=== PATIENT | male | born 1960 | race Caucasian/White ===

== ENCOUNTER 2019-01-07 10:37 | Inpatient (IN) | payer OTHER ==
[2019-01-07] MEDS ORDERED: NORMAL SALINE 1000 ML 2,000 ML IV ONE (10:53)
[2019-01-07] MEDS ORDERED: INSULIN REG, HUMAN 100 UNIT/ML 3 ML VIAL (PYX) SUBCUT ONE (10:55)
[2019-01-07 11:02] LABS: INTERNATIONAL RATION (INR) 1.29; PROTHROMBIN TIME 16.1 SEC (11.4-15.4)
[2019-01-07 11:05] LABS: HEMATOCRIT 37.8 % (37.9-51.0); HEMOGLOBIN 12.9 g/dL (13.5-17.0); MEAN CORPUSCULAR HEMOGLOBIN 30.1 pg (27.0-33.4); MEAN CORPUSCULAR HGB CONC 34.1 g/dL (32.0-36.0); MEAN CORPUSCULAR VOLUME 88 fl (80-97); PLATELET COUNT 357 10^3/uL (150-450); RED BLOOD COUNT 4.27 10^6/uL (4.35-5.55); RED CELL DISTRIBUTION WIDTH 14.7 % (11.5-14.0); WHITE BLOOD COUNT 10.6 10^3/uL (4.0-10.5)
--- NOTE | 2019-01-07 11:09 | ER Document Report ---
ED General - General Stated Complaint: WEAKNESS Time Seen by Provider: 01/07/19 10:42 Notes: 58-year-old male presents to the ER complaining of increasing weakness polyuria polydipsia over the last several months. Patient saw his doctor back in [place]. They are vacationing in [place] this week. The son is a educational technology specialist and reviewed the patient's labs online and the patient had a blood sugar 341 a week ago. The doctor never addressed this. Today the patient's blood sugar was 509 via EMS he has no history of diabetes. The patient denies chest pain or shortness of breath he complains of just extreme fatigue and weakness. Complains of polyuria polydipsia. The patient denies fever or chills. He is nauseous but denies vomiting. Denies abdominal pain. - Related Data Allergies/Adverse Reactions: No Known Allergies Allergy (Unverified 01/07/19 11:15) Past Medical History - Social History Smoking Status: Never Smoker Family History: Reviewed & Not Pertinent Review of Systems - Review of Systems Constitutional: Malaise, Weakness. denies: Chills, Fever Cardiovascular: denies: Chest pain Respiratory: denies: Short of breath Gastrointestinal: Nausea. denies: Diarrhea, Vomiting Genitourinary: Frequency. denies: Dysuria, Flank pain, Hematuria Neurological/Psychological: denies: Headaches -: Yes All other systems reviewed and negative Physical Exam - Vital signs Vitals: Resp Pulse Ox 25 H 95 01/07/19 10:47 01/07/19 10:47 - Notes Notes: GENERAL_APPEARANCE: well_nourished, alert, cooperative, no_acute_distress, no_obvious_discomfort. VITALS: reviewed, see vital signs table. HEAD: no_swelling\tenderness on the head. EYES: PERRL, EOMI, conjunctiva_clear. NOSE: no_nasal_discharge. MOUTH: Mouth and tongue THROAT: no_tonsilar_inflammation, no_airway_obstruction. no_lymphadenopathy NECK: supple, no_neck_tenderness, (-)thyromegaly. BACK: no_back_tenderness. CHEST_WALL: no_chest_tenderness. LUNGS: no_wheezing, no_rales, no_rhonchi, (-)accessory muscle use, good air exchange bilateral. HEART: normal_rate, normal_rhythm, normal_S1, normal_S2, (-)S3, (-)S4, no_mu rmur, no_rub. ABDOMEN: normal_BS, soft, no_abd_tenderness, (-)guarding, (-)rebound, no_organomegaly, no_abd_masses. EXTREMITIES: good pulses in all_extremities, no_swelling\tenderness in the extremities, no_edema. SKIN: warm, dry, good_color, no_rash. MENTAL_STATUS: speech_clear, oriented_X_3, normal_affect, responds_appropriately to questions. NEURO: Neg Motor or Sensory Deficits on exam, CN 2-12 intact, DTR 2+ symmetric x 4, No cerbellar signs Course - Re-evaluation Re-evalutation: 01/07/19 11:08 58-year-old male presents with new onset diabetes. Concern the patient may be in diabetic ketoacidosis. Will draw labs to look for anion gap and ketones. We will give the patient IV fluids small dose of insulin since he is insulin joel. We will look for any underlying causes. Patient is tachycardic here. He looks considerably dehydrated we will give him a couple liters of IV fluids.. 01/07/19 15:04 Patient new onset diabetic he remains tachycardic occasional diaphoresis EKG shows a sinus tach with no ST elevation. There is a mildly bumped troponin but this may be due to dehydration and due to the tachycardia little demand ischemia. He is having no chest pain or shortness of breath. He was feeling n umbness and tingling all over a CT the brain was ordered but my suspicion is low and it was normal. Gave the patient some subcu insulin and will keep given him IV fluids. The patient will be admitted to the hospital for new onset diabetes profound dehydration hyperosmolar state hyponatremia. - Vital Signs Vital signs: Temp Pulse Resp BP Pulse Ox 32 H 138/95 H 93 01/07/19 13:01 01/07/19 13:01 01/07/19 13:01 - Laboratory Result Diagrams: 01/07/19 09:57 01/07/19 09:57 Laboratory results interpreted by me: 01/07/19 01/07/19 01/07/19 09:57 09:57 09:57 WBC 10.6 H RBC 4.27 L Hgb 12.9 L Hct 37.8 L RDW 14.7 H Band Neutrophils % 27 H Lymphocytes % (Manual) 3 L Metamyelocytes % 2 H Myelocytes % 1 H Abs Neuts (Manual) 9.5 H Abs Lymphs (Manual) 0.3 L PT 16.1 H Sodium 128.7 L Chloride 92 L BUN 33 H Creatinine 1.28 H Est GFR (MDRD) Non-Af 57 L Glucose 516 H* POC Glucose Hemoglobin A1c % Lactic Acid Total Bilirubin 1.5 H Direct Bilirubin 1.0 H Alkaline Phosphatase 205 H Albumin 3.3 L Urine Protein Urine Glucose (UA) Urine Blood Urine Urobilinogen 01/07/19 01/07/19 01/07/19 10:50 10:57 10:59 WBC RBC Hgb Hct RDW Band Neutrophils % Lymphocytes % (Manual) Metamyelocytes % Myelocytes % Abs Neuts (Manual) Abs Lymphs (Manual) PT Sodium Chloride BUN Creatinine Est GFR (MDRD) Non-Af Glucose POC Glucose 521 H* Hemoglobin A1c % 9.8 H Lactic Acid 2.4 H Total Bilirubin Direct Bilirubin Alkaline Phosphatase Albumin Urine Protein Urine Glucose (UA) Urine Blood Urine Urobilinogen 01/07/19 01/07/19 01/07/19 12:28 12:40 14:09 WBC RBC Hgb Hct RDW Band Neutrophils % Lymphocytes % (Manual) Metamyelocytes % Myelocytes % Abs Neuts (Manual) Abs Lymphs (Manual) PT Sodium Chloride BUN Creatinine Est GFR (MDRD) Non-Af Glucose POC Glucose 482 H* 491 H* Hemoglobin A1c % Lactic Acid Total Bilirubin Direct Bilirubin Alkaline Phosphatase Albumin Urine Protein 30 H Urine Glucose (UA) >=500 H Urine Blood SMALL H Urine Urobilinogen 4.0 H - Diagnostic Test Radiology reviewed: Reports reviewed Radiology results interpreted by me: 01/07/19 15:[address] 01/07/19 14:11 IMPRESSION: NORMAL BRAIN CT WITHOUT CONTRAST. EVIDENCE OF ACUTE STROKE: NO. Chest X-Ray 01/07/19 14:41 IMPRESSION: Possible small left pleural effusion versus pleural thickening. No other significant findings. Critical Care Note - Critical Care Note Total time excluding time spent on procedures (mins): 31 Discharge - Discharge Clinical Impression: Diabetes, Hyperglycemia, Hyponatremia, Hyperosmolar hyponatremia, Tachycardia Condition: Fair Disposition: ADMITTED OBSERVATION Admitting Provider: Royal (Hospitalist) Unit Admitted: Telemetry
[2019-01-07 11:18] LABS: ALBUMIN 3.3 g/dL (3.5-5.0); ALKALINE PHOSPHATASE 205 U/L (38-126); ANION GAP 14 (5-19); ASPARTATE AMINO TRANSFERASE 51 U/L (17-59); BILIRUBIN,TOTAL 1.5 mg/dL (0.2-1.3); BLOOD UREA NITROGEN 33 mg/dL (7-20); CALCIUM 9.4 mg/dL (8.4-10.2); CARBON DIOXIDE 23 mmol/L (22-30); CHLORIDE 92 mmol/L (98-107); POTASSIUM 4.5 mmol/L (3.6-5.0); TOTAL PROTEIN 7.4 g/dL (6.3-8.2)
[2019-01-07 11:35] LABS: ABSOLUTE LYMPHOCYTES# (MANUAL) 0.3 10^3/uL (0.5-4.7); ABSOLUTE MONOCYTES # (MANUAL) 0.7 10^3/uL (0.1-1.4); BASOPHILS % (MANUAL) 0 % (0-2); EOSINOPHILS % (MANUAL) 0 % (0-6); LYMPHOCYTES % (MANUAL) 3 % (13-45); METAMYELOCYTES % (MANUAL) 2 % (0); MONOCYTES % (MANUAL) 7 % (3-13); MYELOCYTES % (MANUAL) 1 % (0); SEGMENTED NEUTROPHILS % (MAN) 60 % (42-78); TOTAL CELLS COUNTED 100
[2019-01-07 11:36] LABS: PLATELET COMMENT ADEQUATE; RBC MORPHOLOGY COMMENT NORMO-CYTIC/CHROMIC
[2019-01-07 11:39] LABS: BAND NEUTROPHILS % (MANUAL) 27 % (3-5); GLUCOSE 516 mg/dL (75-110)
[2019-01-07 11:44] LABS: VENOUS BLOOD BASE EXCESS -4.7 mmol/L; VENOUS BLOOD HCO3 20.5 mmol/L (20-32); VENOUS BLOOD PCO2 38.5 mmHg (35-63); VENOUS BLOOD PH 7.35 (7.30-7.42)
[2019-01-07 12:50] LABS: AMORPHOUS SEDIMENT,URINE TRACE /HPF; APPEARANCE,URINE CLOUDY; BILIRUBIN,URINE NEGATIVE (NEGATIVE); COLOR,URINE AMBER; GLUCOSE, URINE >=500 mg/dL (NEGATIVE); KETONES,URINE NEGATIVE (NEGATIVE); LEUKOCYTE ESTERASE,URINE NEGATIVE (NEGATIVE); NITRITE,URINE NEGATIVE (NEGATIVE); PROTEIN,URINE 30 mg/dL (NEGATIVE); URINE SPECIFIC GRAVITY 1.024
[2019-01-07] MEDS ORDERED: NORMAL SALINE 1000 ML 1,000 ML IV PRN ×3 (14:11→16:31)
--- NOTE | 2019-01-07 14:31 | EKG REPORT ---
SEVERITY:- ABNORMAL ECG - SINUS TACHYCARDIA PROBABLE LEFT VENTRICULAR HYPERTROPHY BORDERLINE T ABNORMALITIES, INFERIOR LEADS ST ELEVATION, CONSIDER LATERAL INJURY, CLIINICAL CORRELATION NEEDED, NO OLD EKG TO COMPARE. BORDERLINE PROLONGED QT INTERVAL : Confirmed by: Angel Rojo MD 07-Jan-2019 14:30:24
--- NOTE | 2019-01-07 15:00 | RADIOLOGY REPORT (SQ) ---
EXAM DESCRIPTION: CT HEAD WITHOUT COMPLETED DATE/TIME: 01/07/2019 2:50 pm REASON FOR STUDY: AMS COMPARISON: None. TECHNIQUE: Axial images acquired through the brain without intravenous contrast. Images reviewed wi th bone, brain and subdural windows. Images stored on PACS. All CT scanners at this facility use dose modulation, iterative reconstruction, and/or weight based d osing when appropriate to reduce radiation dose to as low as reasonably achievable (ALARA). [facility]: Dose Right [facility]: CareDose [facility]: Dose Right [facility]: Teradose 4D [facility]: Cojoin RADIATION DOSE: CT Rad equipment meets quality standard of care and radiation dose reduction techniq ues were employed. CTDIvol: 53.2 mGy. DLP: 1044 mGy-cm. mGy. LIMITATIONS: None. FINDINGS: VENTRICLES: Normal size and contour. CEREBRUM: No masses. No hemorrhage. No midline shift. No evidence for acute infarction. Normal gra y/white matter differentiation. No areas of low density in the white matter. CEREBELLUM: No masses. No hemorrhage. No alteration of density. No evidence for acute infarction. EXTRAAXIAL SPACES: No fluid collections. No masses. ORBITS AND GLOBE: No intra- or extraconal masses. Normal contour of globe without masses. CALVARIUM: No fracture. PARANASAL SINUSES: Small retention cyst or polyp in the left maxillary sinus. Slight mucosal thicken ing in the left maxillary sinus. SOFT TISSUES: No mass or hematoma. OTHER: No other significant finding. IMPRESSION: NORMAL BRAIN CT WITHOUT CONTRAST. EVIDENCE OF ACUTE STROKE: NO. COMMENT: Quality ID # [id number]: Final reports with documentation of one or more dose reduction techniques (e.g., Automated exposure control, adjustment of the mA and/or kV according to patient size, use of iterative reconstruction technique) TECHNICAL DOCUMENTATION: JOB ID: [id number] [employer]- All Rights Reserved Reading location - IP/workstation name: [email or web address]
--- NOTE | 2019-01-07 15:01 | RADIOLOGY REPORT (SQ) ---
EXAM DESCRIPTION: CHEST SINGLE VIEW COMPLETED DATE/TIME: 01/07/2019 2:53 pm REASON FOR STUDY: high heart rate COMPARISON: None. NUMBER OF VIEWS: One view. TECHNIQUE: Single frontal radiographic view of the chest acquired. LIMITATIONS: None. FINDINGS: LUNGS AND PLEURA: Minimal blunting of left costophrenic angle. Small left effusion cannot be excluded. No consolidation. No pneumothorax. MEDIASTINUM AND HILAR STRUCTURES: No masses. Contour normal. HEART AND VASCULAR STRUCTURES: Heart normal in size. Normal vasculature. BONES: No acute findings. HARDWARE: None in the chest. OTHER: No other significant finding. IMPRESSION: Possible small left pleural effusion versus pleural thickening. No other significant fi ndings. TECHNICAL DOCUMENTATION: JOB ID: [id number] [employer]- All Rights Reserved Reading location - IP/workstation name: [email or web address]
[2019-01-07] MEDS ORDERED: TEMAZEPAM 15 MG CAPSULE PO PRN (16:31)
[2019-01-07] MEDS ORDERED: MAG HYDROX/AL HYDROX/SIMETH SUSP 30 ML UDCUP PO PRN (16:31)
[2019-01-07] MEDS ORDERED: ACETAMINOPHEN 325 MG TABLET PO PRN (16:31)
[2019-01-07] MEDS ORDERED: ONDANSETRON 4 MG TAB.RAPDIS PO PRN (16:31)
[2019-01-07] MEDS ORDERED: MAGNESIUM HYDROXIDE SUSP 30 ML UDCUP PO PRN (16:31)
[2019-01-07] MEDS ORDERED: ALBUTEROL SULFATE 0.083% NEB 2.5 MG/3 ML AMPUL NEB PRN (16:31)
--- NOTE | 2019-01-07 16:31 | PDOC H&P ---
History of Present Illness Admission Date/PCP: 01/07/19 15:19 Patient complains of: Feeling Poorly, weak and no appetite History of Present Illness: ANDREW CARRASCO is a 58 year old male with a past medical history of hypertension, gout and arthritis. Approximately 2 weeks ago he was feeling poorly. He thought he had strained a groin muscle on the left. He went to his primary care doctor. They did x-rays, ultrasound and blood work. He is on vacation at this time and began to feel poorly. He was having weakness, decreased appetite and intermittent confusion. Upon examination the emergency department he was found to have a glucose greater than 500. His son did access his lab work from the office visit 2 weeks ago and his glucose was 301 at that t alexys. He is diaphoretic and somewhat tachypneic. He denies chest pain. He still feels very weak. Despite 4 L of fluid his lactic acid is still 2.4 and he did receive 10 units of regular insulin and his sugar remains over 400. Past Medical History Cardiac Medical History: Reports: Hyperlipidema, Hypertension Pulmonary Medical History: Reports: None EENT Medical History: Reports: None Neurological Medical History: Reports: None Endocrine Medical History: Reports: None Renal/ Medical History: Denies: Chronic Kidney Disease, End Stage Renal Disease Malignancy Medical History: Reports: None GI Medical History: Reports: None Musculoskeltal Medical History: Reports: Arthritis, Gout Skin Medical History: Denies: Eczema, Psoriasis Psychiatric Medical History: Reports: Tobacco Dependency, Other - Previously drank 2 cases of beer per week and does use chewing tobacco Denies: Substance Abuse Traumatic Medical History: Reports: None Hematology: Reports: None Infectious Medical History: Reports: None Past Surgical History Past Surgical History: Reports: Orthopedic Surgery - Arthroscopy right knee, previous back surgery Social History Information Source: Patient - And spouse Lives with: Spouse/Significant other Smoking Status: Never Smoker Frequency of Alcohol Use: Social - History of 2 cases of beer per week Hx Recreational Drug Use: No Hx Prescription Drug Abuse: No - Advance Directive Resuscitation Status: Full Code Surrogate healthcare decision maker:: His Family History Family History: CAD Parental Family History Reviewed: Yes Children Family History Reviewed: Yes Sibling(s) Family History Reviewed.: Yes Medication/Allergy Home Medications: Allopurinol [Zyloprim 300 mg Tablet] 300 mg PO DAILY 01/07/19 Cyclobenzaprine HCl [Flexeril 10 mg Tablet] 10 mg PO BIDP PRN 01/07/19 Diclofenac Sodium [Voltaren] 75 mg PO Q12 01/07/19 Diclofenac Sodium [Voltaren] 200 gm TP QID 01/07/19 Indomethacin [Indocin 25 Mg Capsule] 25 mg PO DAILY 01/07/19 Losartan Potassium [Cozaar 100 mg Tablet] 100 mg PO DAILY 01/07/19 Probenecid/Colchicine [Probenecid-Colchicine Tablet] 1 each PO DAILY 01/07/19 Allergies/Adverse Reactions: No Known Allergies Allergy (Unverified 01/07/19 11:15) Review of Systems Constitutional: PRESENT: as per HPI, anorexia, fatigue. ABSENT: fever(s), weight loss Eyes: ABSENT: visual disturbances Ears: ABSENT: hearing changes Nose, Mouth, and Throat: ABSENT: headache(s), mouth pain, sore throat Cardiovascular: ABSENT: chest pain, edema, palpitations Respiratory: PRESENT: dyspnea - Occasional. ABSENT: cough, hemoptysis, sputum Gastrointestinal: ABSENT: abdominal pain, coffee ground emesis, diarrhea, heartburn, nausea, vomiting Genitourinary: ABSENT: difficulty urinating, dysuria Musculoskeletal: PRESENT: back pain. ABSENT: deformity, joint swelling Integumentary: PRESENT: diaphoresis Neurological: ABSENT: abnormal gait, abnormal movements, abnormal speech, confusion - reports occasional poor concentration, memory loss Psychiatric: ABSENT: anxiety, depression, hallucinations Endocrine: PRESENT: polyuria. ABSENT: cold intolerance, heat intolerance Hematologic/Lymphatic: ABSENT: easy bleeding, easy bruising, lymphadenopathy Allergic/Immunologic: ABSENT: seasonal rhinorrhea Physical Exam Vital Signs: Temp Pulse Resp BP Pulse Ox 32 H 138/95 H 93 01/07/19 13:01 01/07/19 13:01 01/07/19 13:01 Intake & Output 01/06/19 01/07/19 01/08/19 06:59 06:59 06:59 Intake Total 3000 Balance 3000 Weight 95.708 kg General appearance: PRESENT: cooperative, mild distress - Mild to moderate distress, well-nourished Head exam: PRESENT: atraumatic, normocephalic Eye exam: PRESENT: conjunctiva pale, EOMI. ABSENT: conjunctival injection, scleral icterus Ear exam: PRESENT: normal external ear exam. ABSENT: bleeding, drainage Mouth exam: PRESENT: dry mucosa, neck supple, tongue midline Respiratory exam: PRESENT: clear to auscultation lópez, symmetrical, unlabored. ABSENT: rales, rhonchi, tachypnea, wheezes Cardiovascular exam: PRESENT: RRR, +S1, +S2 GI/Abdominal exam: PRESENT: normal bowel sounds, soft. ABSENT: distended, guarding, tenderness Rectal exam: PRESENT: deferred Gentrourinary exam: ABSENT: indwelling catheter Extremities exam: ABSENT: joint swelling, pedal edema Musculoskeletal exam: PRESENT: ambulatory, normal inspection Neurological exam: PRESENT: alert, awake, oriented to person, oriented to place, oriented to time, oriented to situation, CN II-XII grossly intact Psychiatric exam: PRESENT: anxious, flat affect. ABSENT: agitated Focused psych exam: ABSENT: delusional, restlessness Skin exam: PRESENT: pallor, warm, other - Diaphoretic Results Laboratory Results: 01/07/19 09:57 01/07/19 09:57 01/07/19 01/07/19 01/07/19 09:57 09:57 10:50 WBC 10.6 H RBC 4.27 L Hgb 12.9 L Hct 37.8 L MCV 88 MCH 30.1 MCHC 34.1 RDW 14.7 H Plt Count 357 Seg Neutrophils % Not Reportable VBG pH VBG pCO2 VBG HCO3 VBG Base Excess Sodium 128.7 L Potassium 4.5 Chloride 92 L Carbon Dioxide 23 Anion Gap 14 BUN 33 H Creatinine 1.28 H Est GFR ( Amer) > 60 Glucose 516 H* Lactic Acid 2.4 H Calcium 9.4 Total Bilirubin 1.5 H AST 51 Alkaline Phosphatase 205 H Total Protein 7.4 Albumin 3.3 L Urine Color Urine Appearance Urine pH Ur Specific [place] Urine Protein Urine Glucose (UA) Urine Ketones Urine Blood Urine Nitrite Ur Leukocyte Esterase Urine WBC (Auto) Urine RBC (Auto) 01/07/19 01/07/19 01/07/19 11:32 12:28 15:15 WBC RBC Hgb Hct MCV MCH MCHC RDW Plt Count Seg Neutrophils % VBG pH 7.35 VBG pCO2 38.5 VBG HCO3 20.5 VBG Base Excess -4.7 Sodium Potassium Chloride Carbon Dioxide Anion Gap BUN Creatinine Est GFR ( Amer) Glucose Lactic Acid 2.4 H Calcium Total Bilirubin AST Alkaline Phosphatase Total Protein Albumin Urine Color RANJIT Urine Appearance CLOUDY Urine pH 5.0 Ur Specific [place] 1.024 Urine Protein 30 H Urine Glucose (UA) >=500 H Urine Ketones NEGATIVE Urine Blood SMALL H Urine Nitrite NEGATIVE Ur Leukocyte Esterase NEGATIVE Urine WBC (Auto) 7 Urine RBC (Auto) 6 01/07/19 01/07/19 01/07/19 10:59 10:59 14:30 Creatine Kinase 69 Troponin I 0.126 0.104 Impressions: Head CT 01/07/19 14:11 IMPRESSION: NORMAL BRAIN CT WITHOUT CONTRAST. EVIDENCE OF ACUTE STROKE: NO. Chest X-Ray 01/07/19 14:41 IMPRESSION: Possible small left pleural effusion versus pleural thickening. No other significant findings. Assessment and Plan - Diagnosis (1) Diabetes mellitus type 2 in nonobese Is this a current diagnosis for this admission?: Yes Plan: 01/07/2019-the patient's glucose was over 500 on admission. He did have a glucose of 300 several weeks ago but was unaware as he did not receive a call from his primary care provider. He also has a strain in the left groin that was ruled out for DVT. He has received 10 units of regular insulin IV. He will be on a sliding scale. I have also started metformin and glipizide. We will check his fingerstick later tonight. We should be able to decrease his IV fluids. We will recheck electrolytes and lactic acid tonight. (2) Hyperosmolar hyponatremia Is this a current diagnosis for this admission?: Yes Plan: 01/07/2019-his serum sodium is 128. This corrects to normal when considering his elevated glucose. He is receiving normal saline. We will continue to monitor his electrolytes. (3) Tachycardia Is this a current diagnosis for this admission?: Yes Plan: 01/07/2019-with IV fluids his tachycardia should resolve. His initial troponin was elevated but likely due to the acute kidney injury and tachycardia. I will order 2 additional troponin levels and creatinine kinase levels. (4) Hypertension Qualifiers: Hypertension type: essential hypertension Qualified Code(s): I10 - Essential (primary) hypertension Is this a current diagnosis for this admission?: Yes Plan: 01/07/2019-the patient reports that he takes losartan 50 mg at home. The medication reconciliation dose is listed as 100. I ordered the 50 mg of losartan with a hold for systolic blood pressure less than 100. (5) Acute kidney injury Is this a current diagnosis for this admission?: Yes Plan: 01/07/2019-BUN is 33 with an elevated creatinine of 1.38. With all of the IV fluids this should correct. We will continue to monitor his renal function. Of note, the nurse reports tea colored urine. Considering the left leg pain that he was having we will check creatinine kinase to rule out rhabdo. (6) Tachypnea Is this a current diagnosis for this admission?: Yes Plan: 01/07/2019-the nurse did call me to report that the patient is having tachypnea. On chest x-ray he had a small left pleural effusion. I did give a one-time dose of IV Lasix. After this bolus of fluid he will be on continuous infusion and we will adjust the rate based on his laboratory studies and clinical status. - Time Time Spent with patient: 35 or more minutes Medications reviewed and adjusted accordingly: Yes Anticipated discharge: Home Within: within 72 hours - Inpatient Certification Based on my medical assessment, after consideration of the patient's comorbidities, presenting symptoms, or acuity I expect that the services needed warrant INPATIENT care.: Yes I certify that my determination is in accordance with my understanding of Medicare's requirements for reasonable and necessary INPATIENT services [42 CFR 412.3e].: Yes Medical Necessity: Need Close Monitoring Due to Risk of Patient Decompensation, Need For IV Fluids
[2019-01-07] MEDS ORDERED: DEXTROSE 50%-WATER 25 GM/50 ML DISP.SYRIN IV PRN ×2 (16:38)
[2019-01-07] MEDS ORDERED: GLUCAGON,HUMAN RECOMB 1 MG INJ IM PRN (16:38)
[2019-01-07] MEDS ORDERED: DEXTROSE 40% GEL 15 GM TUBE PO PRN ×2 (16:38)
[2019-01-07] MEDS ORDERED: FUROSEMIDE INJ/PF 20 MG/2 ML SDV IV ONE (17:30)
[2019-01-07] MEDS ORDERED: INSULIN LISPRO 100 UNIT/ML 3 ML VIAL SUBCUT ONE (18:15)
--- NOTE | 2019-01-07 18:43 | EKG REPORT ---
SEVERITY:- ABNORMAL ECG - SINUS TACHYCARDIA ST ELEVATION, PROBABLE LATERAL INJURY PROBABLE POSTERIOR INFARCT MINIMAL ST ELEVATION, INFERIOR LEADS BORDERLINE PROLONGED QT INTERVAL : Confirmed by: Angel Rojo MD 07-Jan-2019 18:42:01
[2019-01-07 20:55] LABS: ANION GAP 13 (5-19); BLOOD UREA NITROGEN 33 mg/dL (7-20); CALCIUM 8.4 mg/dL (8.4-10.2); CARBON DIOXIDE 19 mmol/L (22-30); CHLORIDE 101 mmol/L (98-107); GLUCOSE 374 mg/dL (75-110); POTASSIUM 4.6 mmol/L (3.6-5.0)
[2019-01-07] MEDS ORDERED: INSULIN LISPRO 100 UNIT/ML 3 ML VIAL SUBCUT SCH (22:00)
[2019-01-07] MEDS ORDERED: FAMOTIDINE 20 MG TABLET PO SCH (22:00)
[2019-01-07] MEDS ORDERED: METOPROLOL TARTRATE PF/INJ 5 MG/5 ML SDV IV ONE ×2 (22:18→22:30)
[2019-01-07] MEDS ORDERED: METOPROLOL TARTRATE PF/INJ 5 MG/5 ML SDV IV PRN (22:22)
--- NOTE | 2019-01-07 22:39 | Progress Note ---
Provider Note Provider Note: Critical Care: Start: 21:54 Problem: Tachycardia and tachypnea. Care note: I was asked to see the patient by the nursing staff who was concerned that the patient had persistent tachycardia and tachypnea with a respiratory rate in the low 30s to low 40s and a heart rate in the 120s to 140s since admission. Patient became severely dyspneic with minimal activity (getting up to urinate). He responded well to returning to bed and resting with supplemental oxygen at 3 L/min per nasal cannula. His heart rate and respiratory rate however were unchanged despite returning to bed. Patient indicated that his shortness of breath with rapid breathing and a fast pulse have been present, off and on, for 2 or 3 days prior to coming into the hospital. Physical exam showed significant tachycardia and tachypnea on auscultation chest. Lung tavera were noted to be clear. Extremities showed no evidence of clubbing cyanosis or edema. Abdomen is soft with bowel sounds being positive. Neurologically the patient was alert and oriented x3 with grossly normal motor and sensory function. Patient was treated with metoprolol 5 mg IV X 1 dose with a good response and a subsequent dose of oral metoprolol succinate 50 mg x 1 was ordered with orders to start Toprol-XL 100 mg p.o. daily at 10 AM 01/08/2019. Patient's heart rate, respiratory rate and blood pressure responded well to the initial beta-richie therapy. Patient was additionally found to have some mental confusion and ABGs were obtained showing hypoxia with PO2 of 66 and a pH of 7.33 with a bicarbonate of 18. The patient was treated with a bicarb infusion to deliver 150 mEq over the next 6 hours. A continuous insulin infusion was ordered and the routine insulin infusion protocol was advised. Additionally patient was noted to have a positive blood culture (anaerobic bottle) with gram-positive cocci. He was subsequent started on Zosyn 3.375 g IV every 6 hours. Serum lactic acids every 4 hours were obtained. Patient will also be sedated and/or restrained as needed for his protection. A Saunders catheter will be inserted for the patient's comfort and strict monitoring of the patient's urinary output. Stop: 23:32 01/07/2019 Total critical care time: 24 minutes
[2019-01-07 22:53] LABS: ARTERIAL BLOOD BASE EXCESS -6.5 mmol/L; ARTERIAL BLOOD HCO3 18.8 mmol/L (20-24); ARTERIAL BLOOD PCO2 36.7 mmHg (35-45); ARTERIAL BLOOD PH 7.33 (7.35-7.45); ARTERIAL BLOOD PO2 66.6 mmHg (80-100); ARTERIAL BLOOD TOTAL CO2 19.9 mmol/L (23-27)
[2019-01-07 22:54] LABS: ARTERIAL BLOOD FIO2 4 L
[2019-01-07] MEDS ORDERED: METOPROLOL TARTRATE 50 MG TABLET PO ONE (23:00)
[2019-01-07] MEDS ORDERED: SODIUM BICARBONATE 8.4% INJ 50 MEQ/50 ML DISP.SYRIN ONE ×2 (23:09→23:12)
[2019-01-07] MEDS ORDERED: DEXTROSE 5%-WATER 1000 ML 1,000 ML with SODIUM BICARBONATE 150 MEQ IV PRN ×2 (23:24)
[2019-01-07] MEDS ORDERED: INSULIN REG, HUMAN 100 UNIT/ML 3 ML VIAL (PYX) SUBCUT PRN (23:33)
[2019-01-07] MEDS ORDERED: SODIUM BICARBONATE IV PRN ×2 (23:36)
[2019-01-07] MEDS ORDERED: WATER IV PRN ×2 (23:36)
[2019-01-07] MEDS ORDERED: DEXTROSE 5% IV PRN ×2 (23:36)
[2019-01-08] MEDS ORDERED: PIPERACILLIN SODIUM/TAZOBACTAM 3.375 GM in NORMAL SALINE 100 ML IV SCH ×2
[2019-01-08] MEDS ORDERED: PIPERACILLIN/TAZOBACTAM 3.375 GM VIAL IV ONE (00:03)
[2019-01-08] MEDS ORDERED: PIPERACILLIN/TAZOBACTAM 3.375 GM VIAL IV PRN (00:05)
[2019-01-08] MEDS ORDERED: INSULIN REG, HUMAN 100 UNIT/ML 3 ML VIAL (PYX) ONE (00:06)
[2019-01-08] MEDS ORDERED: CHLORPROMAZINE HCL INJ 25 MG/1 ML AMPULE IV PRN ×2 (00:12→01:58)
[2019-01-08] MEDS ORDERED: METOPROLOL TARTRATE PF/INJ 5 MG/5 ML SDV IV ONE (00:23)
[2019-01-08] MEDS ORDERED: CHLORPROMAZINE HCL INJ 25 MG/1 ML AMPULE ONE (00:55)
[2019-01-08] MEDS ORDERED: INSULIN, REGULAR 100 UNIT/100 ML NORMAL SALINE IV PRN ×2 (01:30)
[2019-01-08] MEDS ORDERED: DIAZEPAM INJ 10 MG/2 ML DISP.SYRIN IV PRN (01:56)
--- NOTE | 2019-01-08 01:56 | Progress Note ---
Provider Note Provider Note: Critical Care: Start: 00:56 01/08/2019 Critical care problem: Increasing confusion and agitation. Patient had become more agitated over time and less and less anchored in reality. Patient demonstrated disorientation in all 3 spheres as well as generalized tremulousness, agitation, confusion and probable visual hallucinations. He was given Thorazine 12.5 mg IV every 4 hours and did show some modest response to treatment. He was noted to have reverted back to an elevated heart rate in tachypnea with a heart rate in the 140s and respiratory rate in the mid 30s but his O2 saturation was maintained in the 95 to 98% range with supplemental oxygen. On exam the patient continued to show tachycardia and tachypnea to auscultation though his lungs remain clear. Laboratory evaluation showed a serum lactate of 4.2 and this combined with his positive anaerobic blood culture may point towards sepsis as the etiology of his confusion. The patient's denies excessive use of alcohol though she admits that he does drink several times weekly. As such patient is being moved to the ICU and he will be treated for sepsis with IV Zosyn and IV vancomycin. His diabetes will be treated with an insulin infusion while his bicarbonate infusion is continued. He will continue being treated with Thorazine at increased dose of 25 mg IV every 4 hours as needed agitation and he will also be started on Valium 5 mg IV every 4 hours scheduled with a 10 mg IV q. one hour dosage available for seizure activity or other severe delirium tremens symptoms. A CTA of the chest is being obtained on the way to the ICU and results are still pending at this time. Stop: 01:58 01/08/2019 Total critical care time: 31 minutes
[2019-01-08] MEDS ORDERED: INSULIN LISPRO 100 UNIT/ML 3 ML VIAL SUBCUT SCH (02:00)
[2019-01-08] MEDS ORDERED: DIAZEPAM 5 MG TABLET PO SCH (02:00)
[2019-01-08] MEDS ORDERED: EPINEPHRINE INJ 1 MG/10 ML DISP.SYRIN ONE (02:00)
[2019-01-08] MEDS ORDERED: VANCOMYCIN HCL INJ 1000 MG VIAL IV PRN (02:11)
[2019-01-08] MEDS ORDERED: VANCOMYCIN HCL INJ 1000 MG VIAL IV ONE (02:15)
[2019-01-08] MEDS ORDERED: VANCOMYCIN HCL 2,000 MG in DEXTROSE 5%-WATER 500 ML IV ONE (02:15)
--- NOTE | 2019-01-08 02:25 | RADIOLOGY REPORT (SQ) ---
EXAM DESCRIPTION: CT CHEST ANGIOGRAPHY WITHOUT THEN WITH IV CONTRAST COMPLETED DATE/TME: 01/08/2019 00:00 CLINICAL HISTORY: 58 years, Male, DYSPNEA, TACHYCARDIA. EVAL PE COMPARISON: None. TECHNIQUE: [id number] Images stored on PACS. All CT scanners at this facility use dose modulation, iterative reconstruction, and/or weight based dosing when appropriate to reduce radiation dose to as low as reasonably achievable (ALARA). Axial images with coronal and sagittal MIPS [facility]: Dose Right [facility]: CareDose [facility]: Dose Right [facility]: Teradose 4D [facility]: [employer] LIMITATIONS: None. FINDINGS: Contrast bolus is suboptimal. No large or central pulmonary embolus. Negative for thoracic aortic aneurysm or dissection. Cardiomegaly. Coronary artery calcification. Small to moderate-sized pericardial effusion. Limited evaluation of upper abdomen shows fatty infiltrative change to the liver. Small bilateral pleural effusions. Adjacent consolidative change. No pneumothorax IMPRESSION: Suboptimal contrast bolus however no large or central pulmonary embolus. Cardiomegaly. Small to moderate pericardial effusion. Small bibasilar pleural effusions with adjacent consolidation. TECHNICAL DOCUMENTATION: Quality ID # [id number]: Final reports with documentation of one or more dose reduction techniques (e.g., Automated exposure control, adjustment of the mA and/or kV according to patient size, use of iterative reconstruction technique) copyright 2011 [employer]- All Rights Reserved
--- NOTE | 2019-01-08 02:59 | Progress Note ---
Provider Note Provider Note: Code Blue: 01/08/2019 Patient became pulseless and breathless suddenly at approximately 02:30 while I was still in attendance in the ICU. ACLS procedures for resuscitation were initiated immediately with excellent chest compressions and bag valve mask ventilation. Patient was administered epinephrine intravenously and efforts were continued per ACLS protocol. At pulse checks patient proved to be in asystole per monitor and no pulses were palpable. After approximately 10 minutes of resuscitation his was informed of the situation and she requested that resuscitation be discontinued. Per the patient's designated medical surrogate decision maker (his ) resuscitation efforts were discontinued at approximately 02:45.
--- NOTE | 2019-01-08 03:10 | Death Summary ---
Summary Date : 01/08/19 Time of :: 02:46 Autopsy: No Resuscitation Status: Full Code Primary Care Provider: No local PCP - Final Diagnosis (1) Metabolic acidosis Is this a current diagnosis for this admission?: Yes (2) Acute encephalopathy Is this a current diagnosis for this admission?: Yes (3) Acute kidney injury Is this a current diagnosis for this admission?: Yes (4) Diabetes mellitus type 2 in nonobese Is this a current diagnosis for this admission?: Yes (5) Hyperosmolar hyponatremia Is this a current diagnosis for this admission?: Yes (6) Hypertension Is this a current diagnosis for this admission?: Yes (7) Tachycardia Is this a current diagnosis for this admission?: Yes (8) Tachypnea Is this a current diagnosis for this admission?: Yes Hospital Course:: ANDREW CARRASCO is a 58 year old male with a past medical history of hypertension, gout and arthritis. Approximately 2 weeks ago he was feeling poorly. He thought he had strained a groin muscle on the left. He went to his primary care doctor. They did x-rays, ultrasound and blood work. He is on vacation at this time and began to feel poorly. He was having weakness, decreased appetite and intermittent confusion. Upon examination the emergency department he was found to have a glucose greater than 500. His son did access his lab work from the office visit 2 weeks ago and his glucose was 301 at that time. He is diaphoretic and somewhat tachypneic. He denies chest pain. He still feels very weak. Despite 4 L of fluid his lactic acid is still 2.4 and he did receive 10 units of regular insulin and his sugar remains over 400. Critical Care: Start: 21:54 Problem: Tachycardia and tachypnea. Care note: I was asked to see the patient by the nursing staff who was concerned that the patient had persistent tachycardia and tachypnea with a respiratory rate in the low 30s to low 40s and a heart rate in the 120s to 140s since admission. Patient became severely dyspneic with minimal activity (getting up to urinate). He responded well to returning to bed and resting with supplemental oxygen at 3 L/min per nasal cannula. His heart rate and respiratory rate however were unchanged despite returning to bed. Patient indicated that his shortness of breath with rapid breathing and a fast pulse have been present, off and on, for 2 or 3 days prior to coming into the hospital. Physical exam showed significant tachycardia and tachypnea on auscultation chest. Lung tavera were noted to be clear. Extremities showed no evidence of clubbing cyanosis or edema. Abdomen is soft with bowel sounds being positive. Neurologically the patient was alert and oriented x3 with grossly normal motor and sensory function. Patient was treated with metoprolol 5 mg IV X 1 dose with a good response and a subsequent dose of oral metoprolol succinate 50 mg x 1 was ordered with orders to start Toprol-XL 100 mg p.o. daily at 10 AM 01/08/2019. Patient's heart rate, respiratory rate and blood pressure responded well to the initial beta-richie therapy. Patient was additionally found to have some mental confusion and ABGs were obtained showing hypoxia with PO2 of 66 and a pH of 7.33 with a bicarbonate of 18. The patient was treated with a bicarb infusion to deliver 150 mEq over the next 6 hours. A continuous insulin infusion was ordered and the routine insulin infusion protocol was advised. Additionally patient was noted to have a positive blood culture (anaerobic bottle) with gram-positive cocci. He was subsequent started on Zosyn 3.375 g IV every 6 hours. Serum lactic acids every 4 hours were obtained. Patient will also be sedated and/or restrained as needed for his protection. A Saunders catheter will be inserted for the patient's comfort and strict monitoring of the patient's urinary output. Stop: 23:32 01/07/2019 Critical Care: Start: 00:56 01/08/2019 Critical care problem: Increasing confusion and agitation. Patient had become more agitated over time and less and less anchored in reality. Patient demonstrated disorientation in all 3 spheres as well as generalized tremulousness, agitation, confusion and probable visual hallucinations. He was given Thorazine 12.5 mg IV every 4 hours and did show some modest response to treatment. He was noted to have reverted back to an elevated heart rate in tachypnea with a heart rate in the 140s and respiratory rate in the mid 30s but his O2 saturation was maintained in the 95 to 98% range with supplemental oxygen. On exam the patient continued to show tachycardia and tachypnea to auscultation though his lungs remain clear. Laboratory evaluation showed a serum lactate of 4.2 and this combined with his positive anaerobic blood culture may point towards sepsis as the etiology of his confusion. The patient's denies excessive use of alcohol though she admits that he does drink several times weekly. As such patient is being moved to the ICU and he will be treated for sepsis with IV Zosyn and IV vancomycin. His diabetes will be treated with an insulin infusion while his bicarbonate infusion is continued. He will continue being treated with Thorazine at increased dose of 25 mg IV every 4 hours as needed agitation and he will also be started on Valium 5 mg IV every 4 hours scheduled with a 10 mg IV q. one hour dosage available for seizure activity or other severe delirium tremens symptoms. A CTA of the chest is being obtained on the way to the ICU and results are still pending at this time. (According to his history and physical, the patient admitted drinking up to 2 cases of beer per week.) Stop: 01:58 01/08/2019 Code Blue: 01/08/2019 Patient became pulseless and breathless suddenly at approximately 02:30 while I was still in attendance in the ICU. ACLS procedures for resuscitation were initiated immediately with excellent chest compressions and bag valve mask ventilation. Patient was administered epinephrine intravenously and efforts were continued per ACLS protocol. At pulse checks patient proved to be in asystole per monitor and no pulses were palpable. After approximately 10 minutes of resuscitation his was informed of the situation and she requested that resuscitation be discontinued. Per the patient's designated medical surrogate decision maker (his ) resuscitation efforts were discontinued at approximately 02:45. Patient's body will be released to the mortuary of the family's choosing.
[2019-01-08] MEDS ORDERED: METFORMIN HCL 500 MG TABLET PO SCH (08:00)
[2019-01-08] MEDS ORDERED: GLIPIZIDE 5 MG TABLET PO SCH (08:00)
[2019-01-08 08:02] VITALS: BP 118/104
[2019-01-08] MEDS ORDERED: ENOXAPARIN SODIUM INJ 40 MG/0.4 ML DISP.SYRIN SUBCUT SCH (10:00)
[2019-01-08] MEDS ORDERED: LOSARTAN POTASSIUM 50 MG TABLET PO SCH (10:00)
[2019-01-08] MEDS ORDERED: METOPROLOL SUCCINATE 50 MG TAB.SR.24H PO SCH (10:00)
[2019-01-08] MEDS ORDERED: VANCOMYCIN HCL INJ 1000 MG VIAL IV SCH ×2 (10:00)
[2019-01-08 13:23] LABS: PATH REVIEW PATHOLOGIST REVIEWED
== END 2019-01-08 05:05 | disposition left against medical advice (07) | DRG 871 ==
LOC: ER 10:37 → EH 15:19 → OBSVTOIN 16:31 → 3N 17:40 → ICU 01-08 02:20
PROVIDERS: ADMIT Hospitalist; ATTEND Hospitalist
DX: A41.01 Sepsis due to Methicillin susceptible Staphylococcus aureus (principal); E11.00 Type 2 diabetes mellitus with hyperosmolarity without nonketotic hyperglycemic-hyperosmolar coma (NKHHC); E87.1 Hypo-osmolality and hyponatremia; N17.9 Acute kidney failure, unspecified; E87.2 Acidosis; G93.40 Encephalopathy, unspecified; R53.1 Weakness; R35.8 Other polyuria; R63.1 Polydipsia; E86.0 Dehydration; R00.0 Tachycardia, unspecified; E78.5 Hyperlipidemia, unspecified; R06.82 Tachypnea, not elsewhere classified; I10 Essential (primary) hypertension; R44.1 Visual hallucinations; R45.1 Restlessness and agitation; I46.9 Cardiac arrest, cause unspecified; F17.290 Nicotine dependence, other tobacco product, uncomplicated; Z78.1 Physical restraint status
CPT/HCPCS: 36415; 36600; 70450; 71045; 71275; 80053; 81001; 82010; 82550; 82803; 82962; 83036; 83605; 84484; 85025; 85610; 87040; 87077; 87086; 87186; 93005; 93010; 96360; 96361; 99291; J0171; J1815; J1940; J3230; J3490; J7030; J7060; S0119